=== PATIENT | male | born 1960 | race African-American/Black ===

== ENCOUNTER → 2017-01-21 | Outpatient (CLI) | payer MEDICAID ==
[2015-06-04 10:10] VITALS: BP 249/129
[2017-01-21 15:37] LABS: BASOPHILS # (AUTO) 0.1 X10^3/uL (0.0-0.1); BASOPHILS % (AUTO) 1.1 % (0.2-1.0); EOSINOPHILS % (AUTO) 0.9 % (0.9-2.9); HEMATOCRIT 42.7 % (42.0-54.0); HEMOGLOBIN 13.9 g/dL (13.5-18.0); LYMPHOCYTES # (AUTO) 1.6 X10^3/uL (1.3-2.9); LYMPHOCYTES % (AUTO) 31.8 % (21.0-51.0); MEAN CORPUSCULAR HEMOGLOBIN 28.6 pg (27.0-34.0); MEAN CORPUSCULAR HGB CONC 32.4 g/dL (33.0-35.0); MEAN CORPUSCULAR VOLUME 88.1 fL (80.0-100.0); MEAN PLATELET VOLUME 8.2 fL (7.4-11.0); MONOCYTES # (AUTO) 0.4 x10^3/uL (0.3-0.8); MONOCYTES % (AUTO) 7.1 % (0.0-13.0); NEUTROPHILS # (AUTO) 2.9 x10^3/uL (2.2-4.8); NEUTROPHILS % (AUTO) 59.1 % (42.0-75.0); PLATELET COUNT 333 X10^3/uL (150.0-450.0); RED BLOOD COUNT 4.85 X10^6/uL (4.7-6.0); WHITE BLOOD COUNT 4.9 X10^3/uL (3.6-10.0)
[2017-01-21 15:49] LABS: HEMOGLOBIN A1C 5.5 % (4.5-6.2)
[2017-01-21 16:21] LABS: PLATELET MORPHOLOGY COMMENT NORMAL (NORMAL)
[2017-01-21 16:35] LABS: TOTAL PSA 6.2 ng/mL (0.13-4.0)
[2017-01-21 16:49] LABS: CREATININE,URINE 157.48 mg/dL (40-278); MICROALBUMIN,URINE 6.1 mg/L
[2017-01-21 16:50] LABS: MICROALBUM/CREATININE RATIO,UR 3.9 mg/g cre (0-29)
== END ==
LOC: LAB 14:59
PROVIDERS: ATTEND Nurse Practitioner Family
DX: I10 Essential (primary) hypertension (principal); R97.20 Elevated prostate specific antigen [PSA]
CPT/HCPCS: 36415; 82043; 83036; 84153; 85025